=== PATIENT | female | born 2000 | race Two or more races ===

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

== ENCOUNTER 2018-10-19 21:13 | Observation (INO) | payer MEDICAID ==
[~2018-10-19] VITALS: Ht 154.9 cm; Wt 70.3 kg
[2018-10-19] MEDS ORDERED: ONDANSETRON ODT 4 MG TAB PO ONE (22:15)
[2018-10-19 23:15] LABS: Basophils # (auto) 0 uL; Basophils % (auto) 0.2 % (0.0-2.0); Eosinophils # (auto) 0.1 uL; Eosinophils % (auto) 0.6 % (0.0-7.0); Hematocrit 35.1 % (36.0-46.0); Lymphocytes # (auto) 2.4 uL; Lymphocytes % (auto) 23.1 % (10.0-50.0); Mean Corpuscular Hemoglobin 31.6 pg (28.0-32.0); Mean Corpuscular Hgb Conc. 34.2 g/dL (32.0-36.0); Mean Corpuscular Volume 92.2 fL (80.0-100.0); Monocytes # (auto) 0.6 uL; Monocytes % (auto) 5.9 % (0.0-12.0); Neutrophils # (auto) 7.2 uL; Neutrophils % (auto) 70.2 % (37.0-80.0); Nucleated Red Blood Cells % 0.1 %; Platelet Count (auto) 214 10^3/uL (140-450); Red Blood Cells 3.81 10^6/uL (4.0-5.20); Red Cell Distribution Width 14.7 % (11.8-14.3); White Blood Cell 10.3 10^3/uL (4.4-10.8)
[2018-10-19 23:35] LABS: Urine Amorphous Crystal FEW /hpf (None Seen); Urine Bacteria FEW /hpf (None Seen); Urine Blood Negative /uL (Negative); Urine Specific Gravity 1.008 (1.001-1.035); Urine WBC 15 /hpf (0 - 5)
[2018-10-19 23:40] LABS: Albumin 2.8 g/dL (3.4-5.0); BUN/Creatinine Ratio 14.6; Calcium 9.2 mg/dL (8.5-10.1)
[2018-10-19 23:41] LABS: Alcohol, Urine < 3.0 mg/dL (0-5); Amphetamine Screen, Urine NEGATIVE (NEGATIVE); Barbiturate Scree,Urine NEGATIVE (NEGATIVE); Benzodiazephine Screen, Urine NEGATIVE (NEGATIVE); Cannabinoid Screen, Urine NEGATIVE (NEGATIVE); Cocaine Screen, Urine NEGATIVE (NEGATIVE); Opiate Scree,Urine NEGATIVE (NEGATIVE); Phencyclidine Screen, Urine NEGATIVE (NEGATIVE)
[2018-10-19 23:43] LABS: Bilirubin, Total 0.2 mg/dL (0.2-1.0)
[2018-10-19 23:47] LABS: INR 0.83 (0.9-1.15); Partial Thromboplastin Time 24.8 sec (23.78-33.04)
[2018-10-21 05:09] LABS: RPR Non Reactive (Non Reactive)
== END 2018-10-20 01:10 | disposition home or self-care (01) | DRG 565 ==
LOC: LDRP 21:13
PROVIDERS: ADMIT Obstetrics & Gynecology; ATTEND Obstetrics & Gynecology
DX: O47.9 False labor, unspecified (principal); O26.893 Other specified pregnancy related conditions, third trimester; R11.0 Nausea; Z3A.37 37 weeks gestation of pregnancy
CPT/HCPCS: 36415; 59025; 76805; 80053; 80307; 81001; 81002; 85025; 85610; 85730; 86592; 86703; 86762; 86850; 86900; 86901; 87070; 87340; G0378; Q0162

== ENCOUNTER 2018-10-27 21:28 | Observation (INO) | payer MEDICAID ==
[2018-10-27] MEDS ORDERED: PREN-96 PO (22:25)
== END 2018-10-27 22:58 | disposition home or self-care (01) | DRG 566 ==
LOC: LDRP 21:28
PROVIDERS: ADMIT Obstetrics & Gynecology; ATTEND Obstetrics & Gynecology
DX: O62.9 Abnormality of forces of labor, unspecified (principal); O21.2 Late vomiting of pregnancy; Z3A.39 39 weeks gestation of pregnancy
CPT/HCPCS: 59025; 81002; G0378

== ENCOUNTER 2018-10-29 23:19 | Observation (INO) | payer MEDICAID ==
[~2018-10-29] VITALS: Ht 154.9 cm; Wt 70.3 kg
[~2018-10-29 23:19] MED LIST: PREN-96 PO
== END 2018-10-30 00:30 | disposition home or self-care (01) | DRG 566 ==
LOC: LDRP 23:19
PROVIDERS: ADMIT Specialist; ATTEND Specialist
DX: O00.01 Abdominal pregnancy with intrauterine pregnancy (principal); O26.893 Other specified pregnancy related conditions, third trimester; N89.8 Other specified noninflammatory disorders of vagina; O62.9 Abnormality of forces of labor, unspecified; Z3A.39 39 weeks gestation of pregnancy
CPT/HCPCS: 59025; 81002; 87081; G0378

== ENCOUNTER 2018-11-01 08:52 | Observation (INO) | payer MEDICAID ==
[~2018-11-01] VITALS: Ht 154.9 cm; Wt 70.3 kg
== END 2018-11-01 09:40 | disposition home or self-care (01) | DRG 566 ==
LOC: LDRP 08:52
PROVIDERS: ADMIT Specialist; ATTEND Specialist
DX: O62.9 Abnormality of forces of labor, unspecified (principal); O48.0 Post-term pregnancy; Z3A.40 40 weeks gestation of pregnancy
CPT/HCPCS: G0378

== ENCOUNTER 2018-11-04 18:42 | Observation (INO) | payer MEDICAID | END 2018-11-04 20:52 | disposition home or self-care (01) | DRG 566 | LOC: LDRP 18:42 | PROVIDERS: ADMIT Specialist; ATTEND Specialist | DX: O48.0 Post-term pregnancy (principal); O62.9 Abnormality of forces of labor, unspecified; W19.XXXA Unspecified fall, initial encounter; Y93.89 Activity, other specified; Y92.89 Other specified places as the place of occurrence of the external cause; Y99.8 Other external cause status; Z3A.40 40 weeks gestation of pregnancy | CPT/HCPCS: 59025; 76815; 81002; G0378 ==

== ENCOUNTER 2018-11-06 17:00 | Observation (INO) | payer MEDICAID ==
[~2018-11-06] VITALS: Ht 154.9 cm; Wt 70.3 kg
== END 2018-11-06 19:20 | disposition home or self-care (01) | DRG 566 ==
LOC: LDRP 17:00
PROVIDERS: ADMIT Obstetrics & Gynecology; ATTEND Obstetrics & Gynecology
DX: O48.0 Post-term pregnancy (principal); Z3A.40 40 weeks gestation of pregnancy
CPT/HCPCS: 59025; 76818; 81002; G0378

== ENCOUNTER 2018-11-07 06:10 | Inpatient (IN) | payer MEDICAID | END 2018-11-10 14:40 | disposition home or self-care (01) | LOC: LDRP 06:10 | PROC: 10E0XZZ Delivery of Products of Conception, External Approach (ICD-10-PCS; principal; ~2018-11-07) | DX: O42.92 Full-term premature rupture of membranes, unspecified as to length of time between rupture and onset of labor (principal); O66.5 Attempted application of vacuum extractor and forceps; Z37.0 Single live birth; Z3A.40 40 weeks gestation of pregnancy ==

== ENCOUNTER 2020-12-02 21:46 | Observation (INO) | payer MEDICAID ==
[~2020-12-02] VITALS: Ht 154.9 cm; Wt 65.8 kg
[2020-12-02 23:00] LABS: Alcohol, Urine < 3.0 mg/dL (0-10); Amphetamine Screen, Urine NEGATIVE (NEGATIVE); Barbiturate Scree,Urine NEGATIVE (NEGATIVE); Benzodiazephine Screen, Urine NEGATIVE (NEGATIVE); Cannabinoid Screen, Urine NEGATIVE (NEGATIVE); Cocaine Screen, Urine NEGATIVE (NEGATIVE); Opiate Scree,Urine NEGATIVE (NEGATIVE); Phencyclidine Screen, Urine NEGATIVE (NEGATIVE)
== END 2020-12-02 23:08 | disposition home or self-care (01) ==
LOC: LDRP 21:46
PROVIDERS: ADMIT Obstetrics & Gynecology; ATTEND Obstetrics & Gynecology
DX: O42.92 Full-term premature rupture of membranes, unspecified as to length of time between rupture and onset of labor (principal); O99.891 Other specified diseases and conditions complicating pregnancy; M54.5 Low back pain; O62.9 Abnormality of forces of labor, unspecified; Z3A.37 37 weeks gestation of pregnancy; Z79.899 Other long term (current) drug therapy
CPT/HCPCS: 59025; 80307; 81002; 84112; G0378; Q0114

== ENCOUNTER 2020-12-15 16:09 | Observation (INO) | payer MEDICAID ==
[2020-12-15 17:58] LABS: Urine Bacteria FEW /hpf (None Seen); Urine Blood Negative /uL (Negative); Urine Specific Gravity 1.027 (1.001-1.035); Urine WBC 213 /hpf (0 - 5); Urine WBC Clumps PRESENT /hpf (None Seen)
[2020-12-15 18:02] LABS: Alcohol, Urine < 3.0 mg/dL (0-10); Amphetamine Screen, Urine NEGATIVE (NEGATIVE); Barbiturate Scree,Urine NEGATIVE (NEGATIVE); Benzodiazephine Screen, Urine NEGATIVE (NEGATIVE); Cannabinoid Screen, Urine NEGATIVE (NEGATIVE); Cocaine Screen, Urine NEGATIVE (NEGATIVE); Opiate Scree,Urine NEGATIVE (NEGATIVE); Phencyclidine Screen, Urine NEGATIVE (NEGATIVE)
== END 2020-12-15 19:00 | disposition home or self-care (01) ==
LOC: EDBD → LDRP 16:09
PROVIDERS: ADMIT Obstetrics & Gynecology; ATTEND Obstetrics & Gynecology
DX: O60.00 Preterm labor without delivery, unspecified trimester (principal); Z3A.39 39 weeks gestation of pregnancy; Z79.899 Other long term (current) drug therapy
CPT/HCPCS: 59025; 76805; 80307; 81001; 81002; 84112; G0378; Q0114

== ENCOUNTER 2020-12-17 00:13 | Observation (INO) | payer MEDICAID ==
[2020-12-17] MEDS ORDERED: LACTATED RINGER'S 1,000 ML IV SCH (02:30)
[2020-12-17] MEDS ORDERED: LACTATED RINGER'S 1,000 ML IV ONE (02:30)
== END 2020-12-17 03:58 | disposition home or self-care (01) ==
LOC: LDRP 00:13
PROVIDERS: ADMIT Specialist; ATTEND Specialist
DX: O62.9 Abnormality of forces of labor, unspecified (principal); Z3A.38 38 weeks gestation of pregnancy
CPT/HCPCS: 59025; 81002; 96360; 96361; G0378

== ENCOUNTER 2020-12-17 06:26 | Inpatient (IN) | payer MEDICAID ==
[~2020-12-17] VITALS: Ht 154.9 cm; Wt 65.8 kg
[2020-12-17] MEDS ORDERED: PROMETHAZINE HCL 25 MG/ML 1ML IV PRN (07:00)
[2020-12-17] MEDS ORDERED: DERMOPLAST 60ML BOTTLE TOP PRN (07:00)
[2020-12-17] MEDS ORDERED: LIDOCAINE 2%HCL (LOCAL ANESTH.) INJ 20ML MDV IJ PRN (07:00)
[2020-12-17] MEDS ORDERED: BUTORPHANOL TARTRATE 2 MG/1 ML VIAL IV PRN ×2 (07:00)
[2020-12-17] MEDS ORDERED: WITCH HAZEL-GLYCERIN PAD TOP PRN (07:00)
[2020-12-17] MEDS ORDERED: PHISODERM TOP SOLN 240ML BTL TOP PRN (07:00)
[2020-12-17] MEDS ORDERED: PENICILLIN G POT 5MIL/D5 50ML 50 ML IV ONE (07:00)
[2020-12-17] MEDS: PENICILLIN G POTASSIUM 2,500,000 UNITS in D5W 5% 50 ML IV SCH ×3 (07:11→15:25)
[2020-12-17] MEDS: LACTATED RINGER'S 1,000 ML IV SCH ×5 (07:12→19:51)
[2020-12-17 07:35] LABS: Basophils # (auto) 0 10 ^3/uL (0-0.2); Basophils % (auto) 0.1 % (0.0-2.0); Eosinophils # (auto) 0 10 ^3/uL (0-0.8); Eosinophils % (auto) 0.1 % (0.0-7.0); Hematocrit 36.6 % (36.0-46.0); Hemoglobin 12.3 g/dL (12.2-16.2); Lymphocytes # (auto) 1.4 10 ^3/uL (0.4-5.4); Lymphocytes % (auto) 12.2 % (10.0-50.0); Mean Corpuscular Hemoglobin 31.9 pg (28.0-32.0); Mean Corpuscular Hgb Conc. 33.5 g/dL (32.0-36.0); Mean Corpuscular Volume 95.2 fL (80.0-100.0); Monocytes # (auto) 0.4 10 ^3/uL (0-1.3); Monocytes % (auto) 3.3 % (0.0-12.0); Neutrophils % (auto) 84.3 % (37.0-80.0); Nucleated Red Blood Cells % 0.1 %; Platelet Count (auto) 137 10^3/uL (140-450); Red Blood Cells 3.85 10^6/uL (4.0-5.20); Red Cell Distribution Width 15.2 % (11.8-14.3); White Blood Cell 11.8 10^3/uL (4.4-10.8)
[2020-12-17 07:44] LABS: Urine Bacteria NONE SEEN /hpf (None Seen); Urine Blood Negative /uL (Negative); Urine Hyaline Cast FEW /lpf (0 - 2); Urine Mucus FEW (None Seen); Urine Specific Gravity 1.025 (1.001-1.035); Urine WBC 8 /hpf (0 - 5)
[2020-12-17 07:54] LABS: Albumin 2.6 g/dL (3.4-5.0); BUN/Creatinine Ratio 13.7; Calcium 8.8 mg/dL (8.5-10.1)
[2020-12-17 07:55] LABS: Alcohol, Urine < 3.0 mg/dL (0-10); Amphetamine Screen, Urine NEGATIVE (NEGATIVE); Barbiturate Scree,Urine NEGATIVE (NEGATIVE); Benzodiazephine Screen, Urine NEGATIVE (NEGATIVE); Cannabinoid Screen, Urine NEGATIVE (NEGATIVE); Cocaine Screen, Urine NEGATIVE (NEGATIVE); Opiate Scree,Urine NEGATIVE (NEGATIVE); Phencyclidine Screen, Urine NEGATIVE (NEGATIVE)
[2020-12-17 07:55] LABS: INR 0.92 (0.9-1.15); Partial Thromboplastin Time 24.6 sec (23.0-31.2)
[2020-12-17 07:56] LABS: Bilirubin, Total 0.4 mg/dL (0.2-1.0); Total Protein 6.6 g/dL (6.4-8.2)
[2020-12-17] MEDS ORDERED: ePHEDrine SULFATE 50 MG/ML AMP IV ONE (08:00)
[2020-12-17] MEDS ORDERED: LIDOCAINE HCL 2 %PF INJ 10ML AMP IJ ONE (08:00)
[2020-12-17] MEDS ORDERED: ROPIVACAINE HCL 200 ML EPI SCH (08:00)
[2020-12-17] MEDS ORDERED: fentaNYL CITRATE 100 MCG/2 ML VL IV ONE (08:00)
[2020-12-17] MEDS ORDERED: NALOXONE HCL 0.4 MG/ML VIAL IV ONE (08:00)
[2020-12-17] MEDS ORDERED: LACT. RINGERS/OXYTOCIN 20UNITS 500 ML IV ONE ×2 (12:30→12:45)
[2020-12-17] MEDS ORDERED: TERBUTALINE SULFATE 1 MG/ML 1ML VIAL SC ONE (12:30)
[2020-12-17] MEDS ORDERED: OXYTOCIN 20 UNT in SODIUM CHLORIDE 0.9% 1,000 ML IV ONE ×4 (12:30)
[2020-12-17] MEDS ORDERED: LACT. RINGERS/OXYTOCIN 20UNITS 1,000 ML IV SCH (12:30)
[2020-12-17] MEDS ORDERED: GENTAMICIN SULFATE 80 MG in D5W 5% 100 ML IV SCH ×2 (18:00→20:30)
[2020-12-17] MEDS ORDERED: ACETAMINOPHEN IV 1000 MG/100ML (10MG/ML) IV ONE (18:00)
[2020-12-17] MEDS ORDERED: CLINDAMYCIN 900MG IV 50 ML IV SCH (19:00)
[2020-12-17] MEDS: IBUPROFEN 600 MG TAB PO PRN (21:43)
[2020-12-17 23:00] VITALS: BP 126/78
[2020-12-18 03:00] VITALS: BP 127/56
[2020-12-18 07:06] LABS: RPR Non Reactive (Non Reactive)
[2020-12-18] MEDS: IBUPROFEN 600 MG TAB PO PRN ×2 (07:08→14:30)
[2020-12-18 07:30] VITALS: BP 113/61
[2020-12-18 11:25] VITALS: BP 115/64
[2020-12-18 14:30] VITALS: BP 111/56
[2020-12-18 19:20] VITALS: BP 117/80
[2020-12-18 21:23] VITALS: BP 115/68
== END 2020-12-18 21:40 | disposition home or self-care (01) | DRG 560 ==
LOC: OBSVTOIN 06:26 → INTOOBSV 06:26 → LDRP 06:26 → OBSVTOIN 06:53 → LDRP 07:07
PROVIDERS: ADMIT Specialist; ATTEND Specialist
PROC: 10E0XZZ Delivery of Products of Conception, External Approach (ICD-10-PCS; principal; 2020-12-17)
PROC: 10907ZC Drainage of Amniotic Fluid, Therapeutic from Products of Conception, Via Natural or Artificial Opening (ICD-10-PCS; 2020-12-17)
PROC: 3E0R3BZ Introduction of Anesthetic Agent into Spinal Canal, Percutaneous Approach (ICD-10-PCS; 2020-12-17)
PROC: 00HU33Z Insertion of Infusion Device into Spinal Canal, Percutaneous Approach (ICD-10-PCS; 2020-12-17)
PROC: 0HQ9XZZ Repair Perineum Skin, External Approach (ICD-10-PCS; 2020-12-17)
DX: O69.1XX0 Labor and delivery complicated by cord around neck, with compression, not applicable or unspecified (principal); O70.0 First degree perineal laceration during delivery; Z20.822 Contact with and (suspected) exposure to COVID-19; Z37.0 Single live birth; Z3A.39 39 weeks gestation of pregnancy
CPT/HCPCS: 36415; 59025; 59409; 62282; 80053; 80307; 81001; 85025; 85610; 85730; 86592; 86703; 86762; 86850; 86900; 86901; 87340; 87426; 96360; 96361; 96365; 96366; G0378; J0131; J2540; J2590; J3490; J7060

== ENCOUNTER 2021-02-18 03:41 | Emergency (ER) | payer MEDICAID ==
[~2021-02-18] VITALS: Ht 160 cm; Wt 86.2 kg
[2021-02-18] MEDS ORDERED: ACETAMINOPHEN 500 MG TAB PO ONE (04:45)
[2021-02-18 04:59] LABS: Basophils # (auto) 0 10 ^3/uL (0-0.2); Basophils % (auto) 0.3 % (0.0-2.0); Eosinophils # (auto) 0 10 ^3/uL (0-0.8); Eosinophils % (auto) 0.3 % (0.0-7.0); Hematocrit 41.2 % (36.0-46.0); Hemoglobin 14.1 g/dL (12.2-16.2); Lymphocytes # (auto) 0.8 10 ^3/uL (0.4-5.4); Lymphocytes % (auto) 16.7 % (10.0-50.0); Mean Corpuscular Hemoglobin 30.8 pg (28.0-32.0); Mean Corpuscular Hgb Conc. 34.3 g/dL (32.0-36.0); Monocytes # (auto) 0.7 10 ^3/uL (0-1.3); Monocytes % (auto) 14.6 % (0.0-12.0); Neutrophils # (auto) 3.2 10 ^3/uL (1.6-8.6); Neutrophils % (auto) 68.1 % (37.0-80.0); Red Blood Cells 4.58 10^6/uL (4.0-5.20); White Blood Cell 4.7 10^3/uL (4.4-10.8)
[2021-02-18 05:14] LABS: INR 1.04 (0.9-1.15)
[2021-02-18 05:18] LABS: Calcium 8.4 mg/dL (8.5-10.1); Chloride 105 mmol/L (98-107); Potassium 3.8 mmol/L (3.5-5.1); Sodium 134 mmol/L (136-145)
[2021-02-18 05:22] LABS: Alanine Aminotransferase 28 U/L (13-56); Albumin 3.8 g/dL (3.4-5.0); Anion Gap 7 (5-15); Aspartate Aminotransferase 17 U/L (15-37); BUN/Creatinine Ratio 15.2; Blood Urea Nitrogen 10 mg/dL (7-18); Carbon Dioxide 22 mmol/L (21-32); GFR African American 142 mL/min; GFR Non-African American 117 mL/min; Glucose 96 mg/dL (74-106)
[2021-02-18 05:28] LABS: Alkaline Phosphatase 107 U/L (45-117); Bilirubin, Total 0.2 mg/dL (0.2-1.0); Total Protein 8.3 g/dL (6.4-8.2)
[2021-02-18 06:45] VITALS: BP 123/64
[2021-02-18] MEDS ORDERED: cefTRIAXone SOD 1,000 MG VL IM ONE (06:45)
== END 2021-02-18 07:14 | disposition home or self-care (01) ==
LOC: ER 03:41
DX: U07.1 COVID-19 (principal); J20.8 Acute bronchitis due to other specified organisms; R07.89 Other chest pain
CPT/HCPCS: 36415; 71045; 80053; 83735; 84484; 85025; 85610; 85730; 87426; 93005; 96372; 99285; J0696